=== PATIENT | male | born 1975 | race Caucasian/White ===

== ENCOUNTER 2025-07-12 22:17 | Emergency (ER) | payer OTHER ==
[~2025-07-12] VITALS: Ht 175.3 cm; Wt 110.0 kg
[2025-07-12 23:18] LABS: BLOOD/HGB, URINE NEGATIVE (Negative); KETONE, URINE SMALL (Negative); LEUK ESTERASE, URINE NEGATIVE (negative); NITRITE, URINE NEGATIVE (negative)
[2025-07-12 23:21] LABS: BACTERIA, URINE RARE /hpf (negative); CASTS, URINE NONE SEEN \\lpf; CRYSTALS, URINE NONE SEEN (0-1+); EPITHELIAL CELLS, URINE SQUAMOUS 1+ /lpf (0-1+); REFLEX CULTURE, URINE No (No)
[2025-07-12 23:41] LABS: BASOPHILS 0.9 % (0.2-1.2); EOSINOPHILS 0.9 % (0.8-7.0); LYMPHOCYTES 18.9 % (21.8-53.1); MCH 29.9 PG (25.7-32.2); MCHC 33.6 g/dL (32.3-36.5); MCV 89.2 fL (79.0-92.2); MONOCYTES 8.9 % (5.3-12.2); NEUTROPHILS 69.9 % (34.0-67.9); RBC 5.11 M/uL (4.63-6.08)
[2025-07-12 23:43] LABS: AMPHETAMINES, URINE POSITIVE (NEGATIVE); BARBITURATES, URINE NEGATIVE (NEGATIVE); BENZODIAZEPINE, URINE NEGATIVE (NEGATIVE); CANNABINOID, URINE NEGATIVE (NEGATIVE); COCAINE, URINE NEGATIVE (NEGATIVE); ECSTASY, URINE POSITIVE (NEGATIVE); FENTANYL, URINE NEGATIVE (NEGATIVE); METHADONE, URINE NEGATIVE (NEGATIVE); OPIATES, URINE NEGATIVE (NEGATIVE); OXYCODONE, URINE NEGATIVE (NEGATIVE); PHENCYCLIDINE, URINE NEGATIVE (NEGATIVE)
[2025-07-13 00:09] LABS: ALCOHOL, MEDICAL <3 ng/dL (<3); ALT (SGPT) 30 U/L (14-59); AST (SGOT) 26 U/L (15-37); GLOMERULAR FILTRATION RATE,EST 81 mL/min (>60); PROTEIN, TOTAL 7.8 g/dL (6.4-8.2); TSH, 3RD GENERATION 1.438 uIU/mL (0.358-3.740); UREA NITROGEN 19 mg/dL (7-18)
[2025-07-13 01:21] VITALS: BP 132/103
== END 2025-07-13 01:21 | disposition home or self-care (01) ==
LOC: ED 22:17
PROVIDERS: Internal Medicine
DX: F15.10 Other stimulant abuse, uncomplicated (principal); F10.10 Alcohol abuse, uncomplicated; Z88.0 Allergy status to penicillin
CPT/HCPCS: 36415; 80053; 80307; 81001; 84443; 85025; 99284; G0480

== ENCOUNTER 2025-07-13 11:30 | Emergency (ER) | payer OTHER ==
[~2025-07-13] VITALS: Ht 175.3 cm; Wt 96.7 kg
--- OUTSIDE RECORDS SUMMARY | 2025-07-13 11:36 | XMS ---
PreManage Notification: ASHU COULTER Security Problem Manager Events No recent Security Events currently on file CRITERIA MET - [facility] - 2 Visits in 30 Days CARE PROVIDERS -, [facility] Dentist: Ophthalmic Technician Apprentice Ashley Edmond PHONE: [phone] DR. SANTOS [facility]: [facility] Current [facility] \F\ <UNAVAIL> PHONE: [phone] Jens has no Care Guidelines for this patient. E.D. VISIT COUNT (12 MO.) [address] [place] [address] TOTAL 3 NOTE: Visits indicate total known visits. ED/UCC VISIT TRACKING (12 MO.) 07/13/2025 11:[address] [facility] TYPE: Emergency COMPLAINT: - MEDICAL CLEARANCE 07/12/2025 22:[address] [facility] [place] TYPE: Emergency COMPLAINT: - MENTAL HEALTH 08/17/2024 21:59 [facility] [place] TYPE: Emergency COMPLAINT: - Laceration without foreign body of left wrist, initial encounter - Laceration without foreign body of right wrist, initial encounter - Suicide attempt, initial encounter DIAGNOSES: 1. Laceration without foreign body of left wrist, initial encounter 2. Laceration without foreign body of right wrist, initial encounter 3. Suicide attempt, initial encounter 4. Intentional self-harm by blunt object, initial encounter 5. Unspecified place in correction as the place of occurrence of the external cause 6. Encounter for immunization 7. Suicidal ideations 8. Nicotine dependence, cigarettes, uncomplicated INPATIENT VISIT TRACKING (12 MO.) No inpatient visits to display in this time frame [email or web address]
[2025-07-13] MEDS ORDERED: OLANZapine 10 MG TAB PO ONE (12:15)
[2025-07-13 12:29] LABS: BASOPHILS 1.3 % (0.2-1.2); EOSINOPHILS 1.1 % (0.8-7.0); LYMPHOCYTES 21.2 % (21.8-53.1); MCH 29.9 PG (25.7-32.2); MCHC 33.3 g/dL (32.3-36.5); MCV 89.8 fL (79.0-92.2); MONOCYTES 9.4 % (5.3-12.2); NEUTROPHILS 66.6 % (34.0-67.9); RBC 5.19 M/uL (4.63-6.08)
[2025-07-13 13:09] LABS: ALCOHOL, MEDICAL <3 ng/dL (<3); ALT (SGPT) 35 U/L (14-59); AST (SGOT) 37 U/L (15-37); GLOMERULAR FILTRATION RATE,EST 75 mL/min (>60); PROTEIN, TOTAL 8.4 g/dL (6.4-8.2); TSH, 3RD GENERATION 1.103 uIU/mL (0.358-3.740); UREA NITROGEN 26 mg/dL (7-18)
[2025-07-13] MEDS ORDERED: OLANZapine 10 MG TAB PO SCH (21:00)
[2025-07-13 23:39] LABS: BLOOD/HGB, URINE NEGATIVE (Negative); KETONE, URINE SMALL (Negative); LEUK ESTERASE, URINE NEGATIVE (negative); NITRITE, URINE NEGATIVE (negative)
[2025-07-13 23:51] LABS: AMPHETAMINES, URINE POSITIVE (NEGATIVE); BARBITURATES, URINE NEGATIVE (NEGATIVE); BENZODIAZEPINE, URINE NEGATIVE (NEGATIVE); CANNABINOID, URINE NEGATIVE (NEGATIVE); COCAINE, URINE NEGATIVE (NEGATIVE); ECSTASY, URINE POSITIVE (NEGATIVE); FENTANYL, URINE NEGATIVE (NEGATIVE); METHADONE, URINE NEGATIVE (NEGATIVE); OPIATES, URINE NEGATIVE (NEGATIVE); OXYCODONE, URINE NEGATIVE (NEGATIVE); PHENCYCLIDINE, URINE NEGATIVE (NEGATIVE)
[2025-07-15 07:15] VITALS: BP 115/91
== END 2025-07-15 07:15 ==
LOC: ED 11:30
PROVIDERS: Emergency Medicine
DX: R45.851 Suicidal ideations (principal); F15.959 Other stimulant use, unspecified with stimulant-induced psychotic disorder, unspecified; Z88.0 Allergy status to penicillin
CPT/HCPCS: 36415; 80053; 80307; 81003; 84443; 85025; 99285; A9270; G0480